=== PATIENT | female | born 1975 | race Caucasian/White ===

== ENCOUNTER → 2016-04-13 | Outpatient (CLI) | payer SELFPAY ==
--- NOTE | 2016-04-13 12:28 | RAD ---
Four view right knee. Indication: PAIN IN RIGHT KNEE Comparison: None Impression: Lateral translation tibia in relation to the femur by 16 mm. Advanced -severe medial compartment osteoarthritis with [id number] appearance and significant cortical remodeling of the articular surfaces. Less pronounced moderate changes of the lateral compartment and mild changes of the patellofemoral compartment noted. Moderate size suprapatellar knee effusion. Ossified loose body suspected along the medial margin medial tibial plateau measuring up to 7 mm. Several tiny ossifications noted along the deep margin of the proximal MCL as well. No acute fracture. Electronically signed by: Jose F Chilel MD 04/13/2016 12:26
--- NOTE | 2016-04-13 12:42 | RAD ---
Single frontal view pelvis. Indication: PAIN IN RIGHT HIP Comparison: None Impression: Pelvic ring intact. No acute fracture of the pelvis or hips. No advanced osteoarthritis. Multiple calcified phleboliths in the pelvis. Electronically signed by: Jose F Chilel MD 04/13/2016 12:40
== END ==
LOC: RAD 08:23
PROVIDERS: ATTEND Orthopaedic Surgery
DX: M17.11 Unilateral primary osteoarthritis, right knee (principal); M25.461 Effusion, right knee; M25.551 Pain in right hip; I87.8 Other specified disorders of veins

== ENCOUNTER 2019-01-27 22:27 | Emergency (ER) | payer SELFPAY ==
[2019-01-27] MEDS ORDERED: CHLORHEXIDINE GLUCONATE 4 % 15 ML UD TOP ONE (22:50)
--- NOTE | 2019-01-27 22:51 | ED.PDOC ---
History of Present Illness - General Chief Complaint: Laceration Stated Complaint: laceration to right thumb and R middle finger Time Seen by Provider: 01/27/19 22:49 - History of Present Illness Initial Comments: c/o laceration to the R thumb today Timing/Duration: 1-3 hours Severity: moderate Associated Symptoms: denies symptoms Allergies/Adverse Reactions: Allergies Penicillin G Allergy (Verified 11/21/15 06:24) Home Medications: Ambulatory Orders Esomeprazole Magnesium 40 mg PO DAILY #30 cap 11/21/15 Review of Systems - Review of Systems Constitutional: States: no symptoms reported EENTM: States: no symptoms reported Respiratory: States: no symptoms reported Cardiology: States: no symptoms reported Gastrointestinal/Abdominal: States: no symptoms reported Genitourinary: States: no symptoms reported Musculoskeletal: States: no symptoms reported Skin: States: no symptoms reported Neurological: States: no symptoms reported Endocrine: States: no symptoms reported All other Systems: Reviewed and Negative Past Medical History (General) - Patient Medical History Hx Diabetes: No - Vaccination History Hx Tetanus, Diphtheria Vaccination: No Hx Influenza Vaccination: No Hx Pneumococcal Vaccination: No - Social History Hx Tobacco Use: Yes Hx Alcohol Use: No Hx Substance Use: No Hx Substance Use Treatment: No Hx Depression: No - Female History Patient : No Family Medical History - Family History Mother Family History: No Known Living Status: Unknown Physical Exam - Physical Exam General Appearance: Alert, Comfortable Respiratory: normal breath sounds Cardiovascular/Chest: regular rate, rhythm, no edema Extremity: normal range of motion, non-tender Neurologic: no motor/sensory deficits, alert, normal mood/affect, oriented x 3 Skin Exam: normal color, other - small laceration to the R thumb , bleeding Departure - Departure Clinical Impression: Laceration, Accidental laceration Time of Disposition: 22:52 Disposition: Discharge to Home or Self Care Condition: Good Departure Forms: ED Discharge - Pt. Copy, Patient Portal Self Enrollment Diet: resume usual diet Activity: increase activity as tolerated Referrals: Marty Raines MD [Primary Care Provider] - 1-2 Weeks Home Medications: Ambulatory Orders Esomeprazole Magnesium 40 mg PO DAILY #30 cap 11/21/15
[2019-01-27 23:12] VITALS: BP 136/88; TEMP 97.4; O2SAT 100
[2019-01-27] MEDS ORDERED: TETANUS,DIPHTHERIA,PERTUSSIS 1 EA SYG IM ONE ×2 (23:20)
== END 2019-01-27 23:27 | disposition home or self-care (01) ==
LOC: ER 22:27
DX: S61.011A Laceration without foreign body of right thumb without damage to nail, initial encounter (principal); Z88.0 Allergy status to penicillin; W45.8XXA Other foreign body or object entering through skin, initial encounter; Y92.9 Unspecified place or not applicable; Y93.G1 Activity, food preparation and clean up; Z87.891 Personal history of nicotine dependence